=== PATIENT | male | born 1980 | race Hispanic/Latino ===

== ENCOUNTER 2025-08-30 10:36 | Inpatient (IN) | payer BC ==
[2025-08-30] VITALS (7 sets, daily range): BP systolic 132–139; BP diastolic 69; PULSE 71–77; RESP 18–20; TEMP 97.8–99.1; O2SAT 99–100
[~2025-08-30] VITALS: Ht 188 cm; Wt 186.0 kg
[2025-08-30] MEDS: TETANUS/DIPHTHERIA TOX ADULT 0.5 ML SYR IM ONE (12:03)
[2025-08-30 12:44] LABS: BASOPHILS % 0.3 % (0.0-1.0); EOSINOPHILS % 0.5 % (0.0-6.0); LYMPHOCYTES % 10.7 % (18.0-39.1); MONOCYTES % 7.4 % (4.4-11.3); NEUTROPHILS % 80.7 % (38.7-80.0); RED CELL DISTRIBUTION WIDTH 12.7 % (11.7-14.4)
[2025-08-30] MEDS: ONDANSETRON HCL INJ 2MG/ML 2ML 2 MG/ML VIAL IV STA (12:47)
[2025-08-30] MEDS: Morphine 4mg INJECTION 4 MG/ML INJ IV ONE (12:48)
[2025-08-30 13:02] LABS: EST GLOMERULAR FILTRATION RATE 87.0 ML/MIN (>=60)
[2025-08-30] MEDS ORDERED: IOPAMIDOL 370 MG/ML 100 ML INFUS..BTL INJ ONE (13:10)
[2025-08-30 14:56] LABS: CALCIUM IONIZED 0.6 mmol/L (1.09-1.30)
[2025-08-30] MEDS: CALCIUM GLUC 1 G/50 ML NACL 100 ML IV ONE ×2 (15:27→23:48)
[2025-08-30] MEDS ORDERED: SODIUM CHLORIDE FLUSH 10 ML SYR INJ PRN (15:30)
[2025-08-30] MEDS: HYDROCODONE/APAP 5MG-325MG TAB PO PRN (17:59)
[2025-08-30] MEDS ORDERED: HYDROXYZINE HCL10 MG PO (18:05)
[2025-08-30] MEDS ORDERED: ACETAMINOPHEN 325 MG TAB PO PRN (21:30)
[2025-08-30] MEDS: KETOROLAC TROMETHAMINE 30 MG/ML VIAL IV STA (22:16)
[2025-08-30] MEDS: MAGNESIUM SULFATE 2GM/50ML 50 ML IV ONE (22:16)
[2025-08-31] VITALS (7 sets, daily range): BP systolic 102–133; BP diastolic 64–89; PULSE 62–74; RESP 17–20; TEMP 97.6–99.1; O2SAT 99–100
[2025-08-31 04:36] LABS: BASOPHILS % 0.2 % (0.0-1.0); EOSINOPHILS % 2.3 % (0.0-6.0); LYMPHOCYTES % 17.7 % (18.0-39.1); MONOCYTES % 9.8 % (4.4-11.3); NEUTROPHILS % 69.7 % (38.7-80.0); RED CELL DISTRIBUTION WIDTH 12.8 % (11.7-14.4)
[2025-08-31 04:44] LABS: CALCIUM IONIZED 0.7 mmol/L (1.09-1.30)
[2025-08-31 04:57] LABS: EST GLOMERULAR FILTRATION RATE 101.0 ML/MIN (>=60)
[2025-08-31 05:04] LABS: PHOSPHORUS 6.1 MG/DL (2.3-4.7)
[2025-08-31 05:41] LABS: ABG BASE EXCESS 3.0 mmol/L (-2 - 3); ABG HCO3 27 mmol/L (22-26); ABG OXYGEN SATURATION 83.0 % (95-98); ABG PCO2 40 mmHg (35-45); ABG PH 7.44 (7.35-7.45); ABG PO2 46 mmHg (80-105); ABG TCO2 28
[2025-08-31 05:41] LABS: ABG BASE EXCESS 2.0 mmol/L (-2 - 3); ABG HCO3 27 mmol/L (22-26); ABG OXYGEN SATURATION 96.0 % (95-98); ABG PCO2 44 mmHg (35-45); ABG PH 7.40 (7.35-7.45); ABG PO2 86 mmHg (80-105); ABG TCO2 28
[2025-08-31] MEDS: CALCIUM GLUC 1 G/50 ML NACL 150 ML IV STA (05:57)
[2025-08-31] MEDS: CALCIUM GLUC 1 G/50 ML NACL 50 ML IV ONE ×2 (07:03→09:03)
[2025-08-31] MEDS: MAGNESIUM SULFATE 2GM/50ML 50 ML IV ONE ×2 (11:00→14:56)
[2025-08-31] MEDS ORDERED: IOPAMIDOL 370 MG/ML 100 ML INFUS..BTL INJ ONE (11:02)
[2025-08-31] MEDS ORDERED: SODIUM CHLORIDE 0.9% 0 ML ONE (11:02)
[2025-08-31] MEDS: SODIUM CHLORIDE 0.9% 250ML 250 ML ONE (11:12)
[2025-08-31] MEDS ORDERED: CALCITRIOL 0.25 MCG CAP PO SCH (12:00)
[2025-08-31] MEDS ORDERED: ERGOCALCIFEROL 50,000 UNIT CAP PO SCH (12:00)
[2025-08-31] MEDS: CALCITRIOL 0.25 MCG CAP PO SCH (18:25)
[2025-08-31] MEDS: MAGNESIUM OXIDE 400 MG TAB PO SCH (18:25)
[2025-08-31] MEDS: CALCIUM CARBONATE 500 MG CHEWABLE TABS PO SCH (20:30)
[2025-08-31] MEDS: ONDANSETRON HCL INJ 2MG/ML 2ML 2 MG/ML VIAL IV PRN (20:30)
[2025-08-31] MEDS: ERGOCALCIFEROL 50,000 UNIT CAP PO SCH (20:30)
[2025-08-31] MEDS: Morphine 2mg Syringe 2 MG/ML SYR IV PRN (20:32)
[2025-09-01 04:00] VITALS: BP 113/64; PULSE 71; RESP 18; TEMP 98.7; O2SAT 97
[2025-09-01 05:25] LABS: EST GLOMERULAR FILTRATION RATE 107.0 ML/MIN (>=60); PHOSPHORUS 5.6 MG/DL (2.3-4.7)
[2025-09-01 07:10] LABS: ABG BASE EXCESS 3.0 mmol/L (-2 - 3); ABG HCO3 29 mmol/L (22-26); ABG OXYGEN SATURATION 55.0 % (95-98); ABG PCO2 51 mmHg (35-45); ABG PH 7.36 (7.35-7.45); ABG PO2 31 mmHg (80-105); ABG TCO2 30
[2025-09-01] MEDS ORDERED: MAG-OXIDE400 MG PO (11:47)
[2025-09-01] MEDS ORDERED: TUMS200 MG PO (11:47)
[2025-09-01] MEDS ORDERED: Calcitriol PO (11:47)
[2025-09-01] MEDS ORDERED: Ergocalciferol PO (11:47)
[2025-09-01] MEDS ORDERED: KETOROLAC TROME10 MG PO (11:47)
[2025-09-01 12:00] VITALS: BP 133/76; PULSE 71; RESP 20; TEMP 99.3; O2SAT 97
[2025-09-01] MEDS: CALCIUM GLUC 1 G/50 ML NACL 50 ML IV ONE (12:32)
[2025-09-01] MEDS: MAGNESIUM SULFATE 2GM/50ML 50 ML IV ONE (14:16)
[2025-09-01 14:28] VITALS: BP 128/57; PULSE 60; RESP 20; TEMP 98.9; O2SAT 100
[2025-09-01] MEDS ORDERED: CEPHALEXIN500 MG PO (16:03)
[2025-09-01 16:46] LABS: HIV 1&2 AB SCREEN NON-REACTIVE (NONREACTIVE); HIV- 1 P24 AG SCREEN NON-REACTIVE (NONREACTIVE)
[2025-09-01 17:57] VITALS: BP 126/70; PULSE 70; RESP 20; TEMP 98.7; O2SAT 100
== END 2025-09-01 17:30 | disposition home or self-care (01) | DRG 644 ==
LOC: ER 11:05 → ERHOLD 15:23 → MED/SURG 16:36 → OBSVTOIN 08-31 14:33
PROVIDERS: ADMIT Internal Medicine; ATTEND Internal Medicine
DX: E21.0 Primary hyperparathyroidism (principal); M62.82 Rhabdomyolysis; Z68.43 Body mass index [BMI] 50.0-59.9, adult; S51.001A Unspecified open wound of right elbow, initial encounter; S81.002A Unspecified open wound, left knee, initial encounter; S61.402A Unspecified open wound of left hand, initial encounter; R07.9 Chest pain, unspecified; E66.01 Morbid (severe) obesity due to excess calories; N28.9 Disorder of kidney and ureter, unspecified; E04.1 Nontoxic single thyroid nodule; K57.90 Diverticulosis of intestine, part unspecified, without perforation or abscess without bleeding; D72.829 Elevated white blood cell count, unspecified; I10 Essential (primary) hypertension; E11.9 Type 2 diabetes mellitus without complications; E88.09 Other disorders of plasma-protein metabolism, not elsewhere classified; E55.9 Vitamin D deficiency, unspecified; Z80.51 Family history of malignant neoplasm of kidney; V29.99XA Rider (driver) (passenger) of other motorcycle injured in unspecified traffic accident, initial encounter; Y92.410 Unspecified street and highway as the place of occurrence of the external cause
CPT/HCPCS: 36415; 70450; 71260; 72125; 74177; 74178; 76536; 76770; 80053; 80320; 82310; 82550; 82805; 83690; 83735; 83970; 84100; 84439; 84443; 84550; 85025; 87390; 90471; 90714; 99252; 99283; G0378; G0433; G0435; J1885; J2270; J2405; J3475; J7050; Q9967